=== PATIENT | female | born 1980 | race Caucasian/White ===

== ENCOUNTER 2016-08-04 22:40 | Emergency (ER) | payer OTHER ==
[~2016-08-04] VITALS: Ht 157.5 cm; Wt 104.5 kg
[2016-08-04 22:46] VITALS: BP 137/85; PULSE 77; RESP 16; O2SAT 98
--- NOTE | 2016-08-05 00:21 | ED.REPORT ---
HPI-General Illness Date of Service August 05, 2016 ED Provider: Aayush Lyn MD Pt is a 35 y/o female w/ a hx of anxiety presenting to the ED via airlift EMS c/ o intermittent twinge-like substernal CP onset about 3 days ago. Her symptoms are not exacerbated or relieved by anything. These episodes of chest pain seem to bring on her anxiety symptoms and she states she has been seen for chest pain in the setting of anxiety previously. Her anxiety was previously managed by medication but she has not used any medications since her . She denies cough, fever, SOB. Pt denies any periods of immobilization, history of PE or DVT. Nursing Notes Stated Complaint: CHEST PAIN Chief Complaint: Chest Pain Nursing Notes Reviewed: Yes Allergies: Coded Allergies: NSAIDS (Non-Steroidal Anti-Inflamma (Verified Allergy, Intermediate, kidney problems, 06/04/15) acetaminophen (Verified Allergy, Intermediate, advised not to take it, ) Scheduled PRN Lorazepam (Ativan) 0.5 Mg Tablet 0.5 MG PO TID PRN PRN For Anxiety General Time Seen by MD: 23:13 Chief Complaint Chest pain Hx Obtained From: Patient, EMS Arrived By: Ambulance Sudden in Onset?: No Onset Occurred: 3 days ago Symptom Duration: Since onset Location: : Chest Quality: Painful Severity: Current: Moderate Severity: Maximum: Moderate Past Medical History Past Medical History Calcium oxalate kidney stones HCV Anxiety PTSD PCOS Past Surgical History Liver biopsy Family History noncontributory Smoking History Former Smoker, Light Tobacco Smoker Social History Alcohol Use: Denies alcohol use Drug Use: Denies drug use Other Social History: Good social support, , Local resident Ambulatory Status Independent Review of Systems Full Review of Systems Constitutional: Denies: Chills, Fever Respiratory: Denies: Non-productive cough, Pleuritic pain, Shortness of breath Cardiovascular: Reports: Chest pain Psychiatric: Reports: Anxiety Complete sys rev & neg: except as marked. Physical Exam Vital Signs Vital Signs Date Time Temp Pulse Resp B/P Pulse Ox O2 Delivery O2 Flow Rate FiO2 08/05/16 01:33 36.9 68 16 138/95 97 Room Air 08/04/16 22:46 36.9 77 16 137/85 98 Room Air Initial VS: Reviewed, Vital signs normal Head / Eyes: Atraumatic, Normocephalic, PERRL ENT: Mucous membranes moist, Conjunctiva normal, No scleral icterus Neck: Supple, Full range of motion Respiratory: Breath sounds normal, Clear to auscultation, No respiratory distress Cardiovascular: Regular rate & rhythm, Heart sounds normal, Intact distal pulses Abdomen / GI: Soft, Non-tender Extremities: Vascular intact, Neuro intact, No swelling, No tenderness Skin: Warm, Dry, No cyanosis Neurologic: Alert, Oriented, Nonfocal General/Constitutional: Awake, Alert, No acute distress, Well appearing, Cooperative, Not toxic appearing Behavior: Positive: Anxious Psychiatric: Mood NL Abnormal Mood/Affect: Positive: Anxious (very) Interpretation & Diagnostics Lab Results Interpretation Test 08/04/16 23:40 Hold Urine Received (Received) ECG Interpretation Time: 00:24 Interpreted by: ED physician Normal ECG Interpretation: Normal ECG w/ rate of... (70), Normal rate, Normal sinus rhythm, No acute ischemic changes, Normal QRS, Normal axis, Normal intervals, Adequate tracing X-Ray Chest Interpretation View: Portable, AP & lat Interpretation / Wet Read by: Wet read ED physician NL X-Ray Chest Findings: No infiltrate, No acute disease Re-Eval/Medical Decision Med Decision/Clinical Course Pt is a 35 y/o female w/ a hx of anxiety presenting to the ED via airlift EMS c/ o intermittent twinge-like substernal CP onset about 3 days ago. Her symptoms are not exacerbated or relieved by anything. These episodes of chest pain seem to bring on her anxiety symptoms and she states she has been seen for chest pain in the setting of anxiety previously. Her anxiety was previously managed by medication but she has not used any medications since her . She denies cough, fever, SOB. Pt denies any periods of immobilization, history of PE or DVT. Urine preg: negative CXR: Obtained, reviewed and interpreted by myself shows no evidence of infiltrates, effusions or pneumothorax. Cardiac and mediastinal silhouette normal. No bony or soft tissue abnormalities. EKG was obtained and interpreted by myself as documented above. Patient reports a high level of anxiety. At this time, I see no evidence of pneumonia, pneumothorax, acute coronary syndrome or other immediately concerning /life-threatening cause of the patient's chest discomfort. She states she feels reassured and would like to go home. I feel that this is appropriate. Discussed management options for her anxiety as well as return precautions. Prior to discharge follow-up and return precautions were reviewed in detail with the patient who verbalized understanding and agreement with the plan. The patient was discharged in stable condition. Time of Eval: 00:49 Re-Evaluation/Progress Note: Pt rechecked. Informed pt of plan for treatment. Pt understands and agrees with plan for treatment. F/U instructions and RTER warnings given. All questions addressed. Counseled Regarding: Diagnosis, Lab results, Need for follow-up, When/why to return to ED Discharge & Departure Primary Impression: Chest pain Chest pain type: other chest pain Qualified Code: R07.89 - Other chest pain Additional Impression: Anxiety Disposition: Home Discharge Condition All VS Reviewed: Yes Condition: Stable Patient Instructions: Chest Pain (ED), Generalized Anxiety Disorder (GEN) Additional Instructions: Thank you for seeking care at the emergency room. It is difficult for us to make definitive diagnoses in the ED but we believe that you are experiencing chest pain which is likely caused by anxiety. Our primary goal today in the ED was to evaluate you for any life-threatening conditions. Your evaluation was reassuring. You will be discharged with a prescription for Ativan. Take this as directed for anxiety. This medication is a benzodiazepine and will likely cause drowsiness. Do not drink alcohol, take other benzodiazepine medication, opiate pain medication, or sedating medications while taking Ativan. Do not drive after taking Ativan. Keep in mind Benzodiazepines often cause dependency. Only take it when needed. You should follow-up with your primary doctor in the next week. Consider discussing anxiety medications which may include anti-depressants with your doctor. You should return to the ED immediately if you develop fevers, vomiting, shortness of breath, worsening chest pain, lightheadedness, passing out or any other concerning signs or symptoms. Thank you for letting us partake in your care today. Referrals: [facility] (PCP) Scribe Attestation Portions of this note were transcribed by Aquilino Licona. I, Dr. Lyn personally performed the history, physical exam and medical decision-making; I reviewed and confirmed the accuracy of the information in the transcribed note. Signed by Lorenzo Toth, 08/05/ - 0030 Aayush Lyn MD August 05, 2016 00:21 AQUILINO LICONA August 05, 2016 00:24
[2016-08-05] MEDS ORDERED: LORA-302 PO (00:50)
[2016-08-05] MEDS ORDERED: LORazepam 1 mg Tablet PO ONE (00:50)
[2016-08-05 01:33] VITALS: BP 138/95; PULSE 68; RESP 16; O2SAT 97
--- NOTE | 2016-08-05 09:23 | DRSVH ---
PROCEDURE: X-RAY CHEST, TWO VIEWS ([id number]) INDICATIONS: CHEST PAIN TECHNIQUE: 2 views of the chest were acquired. COMPARISON: None. FINDINGS: Surgical changes and devices: None. Lungs and pleura: No pleural effusions or pneumothorax. Lungs are clear. Mediastinum: Mediastinal contours are normal. Heart size is normal. Bones and chest wall: No suspicious bony abnormalities. Soft tissues appear unremarkable. IMPRESSION: No acute cardiopulmonary disease. Dictated by: Vito Dc [facility] Interpreted: Nguyen Gimenez MD on 08/05/2016 at 8:46 Approved by: Nguyen Gimenez MD, PhD on 08/05/2016 at 9:21
== END 2016-08-05 01:34 | disposition home or self-care (01) ==
LOC: SED 22:40
DX: R07.89 Other chest pain (principal); F41.9 Anxiety disorder, unspecified; F43.10 Post-traumatic stress disorder, unspecified; Z87.891 Personal history of nicotine dependence; Z88.8 Allergy status to other drugs, medicaments and biological substances

== ENCOUNTER 2016-11-06 23:55 | Emergency (ER) | payer OTHER ==
[~2016-11-06] VITALS: Ht 157.5 cm; Wt 107.3 kg
[~2016-11-06 23:55] MED LIST: LORA-302 PO
[2016-11-07 00:14] VITALS: BP 123/60; PULSE 89; RESP 20; O2SAT 100
--- NOTE | 2016-11-07 01:50 | ED.REPORT ---
HPI-Neurologic Deficit Date of Service Nov 07, 2016 ED Provider: Dr. Mcrae The pt is a 36 y/o female with a hx of PCOS, anxiety, and PTSD who presents to the ED complaining of right cheek numbness in the zygomatic region, onset two weeks ago. She also experiences intermittent numbness around the lips. She has consulted her PCP about this and has an MRI scheduled for next week. She came in today because her sx lasted significantly longer today. She also reports a few episodes of right ear pain. She denies facial droop, pain in the cheek and any other sx at this time. Nursing Notes Stated Complaint: RIGHT SIDE FACIAL NUMBNESS Chief Complaint: Neuro Symptoms/ Deficits Nursing Notes Reviewed: Yes Allergies: Coded Allergies: NSAIDS (Non-Steroidal Anti-Inflamma (Verified Allergy, Intermediate, kidney problems, 11/07/16) acetaminophen (Verified Allergy, Intermediate, advised not to take it, ) Scheduled PRN Lorazepam (Ativan) 0.5 Mg Tablet 0.5 MG PO TID PRN PRN For Anxiety General Time Seen by Provider: 01:55 Chief Complaint Other (right cheek numbness) Hx Obtained From: Patient Arrived By: Walk-in Sudden in Onset?: Yes Onset Occurred: More than a week ago... (2 weeks) Symptom Duration: Since onset Severity: Current: No pain currently Severity: Maximum: No pain Recent Healthcare: Recent doctor visit Past Medical History Past Medical History Calcium oxalate kidney stones HCV Anxiety PTSD PCOS Past Surgical History Liver biopsy Family History noncontributory Smoking History Former Smoker, Light Tobacco Smoker Social History Alcohol Use: Denies alcohol use Drug Use: Denies drug use Other Social History: Good social support, , Local resident Ambulatory Status Independent Review of Systems Denies: facial droop Denies: pain in the right cheek Neurologic: Reports: Numbness (right cheek and intermittently around the lips) Complete sys rev & neg: except as marked. Ears / Nose / Throat: Reports: Earache right (a few episodes) Physical Exam Initial Vital Signs Vital Signs (First) Date Time Temp Pulse Resp B/P Pulse Ox O2 Delivery O2 Flow Rate FiO2 11/07/16 00:14 37.1 89 20 123/60 100 Room Air Initial VS: Reviewed, Vital signs normal Neck: Supple, Non-tender, Full range of motion Extremities: Vascular intact, Neuro intact, No swelling, No tenderness Skin: Warm, Dry, No cyanosis General/Constitutional: Awake, Alert, No acute distress, Well appearing, Cooperative Head / Eyes: Atraumatic, Normocephalic, PERRL Temporal Artery: Negative: Temporal artery swollen R, Temporal artery tender R Respiratory / Chest: Atraumatic, Breath sounds NL, Breath sounds = bilat, No respiratory distress, No rales, No rhonchi, No wheezing Cardiovascular: Heart rate NL, Regular rhythm, Heart sounds NL, No gallop, No murmurs Neurologic: Oriented X3, Speech NL, No motor deficits, No sensory deficits ENT: Atraumatic, Mastoid area NL Right Ear / Mastoid: Positive: Tympanic membrane red, Negative: Mastoid area tender Right TM dull, thickened and retracted. Left TM normal Interpretation & Diagnostics CT Head Interpretation No CT evidence of hemorrhage, mass, or acute infarct. Signed by Dr. Edward Umaña 11/07/16 02:42 Study: Head CT w contrast Interpretation / Wet Read by: Interpret - Radiologist Re-Eval/Medical Decision Med Decision/Clinical Course 36-year-old female with intermittent numbness of the right cheek and a small area just anterior to the ear. This likely represents a peripheral nerve pathology, rather than a central etiology. Head CT scan with extension down through the mastoid area is normal. She has an MRI scheduled as an outpatient and will keep that appointment. She also has eustachian tube dysfunction and retraction of the right TM. This may represent some sort of a referred pain from that pathology. Re-Evaluation/Progress #1: Time of Eval: 02:01 Re-Evaluation/Progress Note: Rechecked pt. Discussed the plan to do a CT. The pt understands. All questions answered. Re-Evaluation/Progress #2: Time of Eval: 03:12 Re-Evaluation/Progress Note: Rechecked pt. Discussed imaging results, diagnosis and plan to discharge. Pt understands and agrees with the plan. F/U instruction and RTER warning given. All questions addressed. Counseled Regarding: Diagnosis, Need for follow-up, When/why to return to ED Discharge & Departure Impression: Primary Impression: Right facial numbness Disposition: Home Discharge Condition All VS Reviewed: Yes Condition: Stable Additional Instructions: The cause of the small area facial numbness is not certain but it seems to be related to a peripheral nerve. I doubt this is a stroke syndrome, and it is not clearly Aleman's palsy. Your CT scan of your brain and ear area is normal. Your right eardrum is retracted due to eustachian tube dysfunction. Afrin nasal spray 1 spray each nostril 3 times a day for 3 days. Follow up as planned with your regular doctor and get the MRI as planned. Referrals: [facility] Scribe Attestation Portions of this note were transcribed by Sonia Coley. I,, personally performed the history,physical exam and medical decision-making;I reviewed and confirmed the accuracy of the information in the transcribed note. Signed by Sonia Coley, Lorenzo. 11/07/16 Rojas Mcrae MD Nov 07, 2016 01:50 Sonia Coley Nov 07, 2016 02:07
[2016-11-07 03:46] VITALS: BP 132/74; PULSE 88; RESP 20; O2SAT 100
--- NOTE | 2016-11-07 07:09 | DRSVH ---
PROCEDURE: CT BRAIN WITHOUT CONTRAST ([id number]) INDICATIONS: right facial numbness, otitis TECHNIQUE: Noncontrast 4.5 mm thick angled axial sections acquired from the foramen magnum to the vertex, with c oronal reformats. COMPARISON: None. FINDINGS: Image quality: Excellent. CSF spaces: Basal cisterns are patent. No extra-axial fluid collections. Ventricles are normal in size and shape. Brain: No midline shift. No intracranial masses or hemorrhage. Byrnes-white matter interface is norm al. Skull and face: Calvarium and visualized facial bones are intact, without suspicious lesions. Sinuses: Visualized sinuses and mastoids are clear. IMPRESSION: Negative head CT. No significant discrepancy with the mold shifter radiology preliminary report. Dictated by: Dick Guardado M.D. on 11/07/2016 at 7:07 Approved by: Dick Guardado M.D. on 11/07/2016 at 7:08
== END 2016-11-07 03:44 | disposition home or self-care (01) ==
LOC: SED 23:55
DX: R20.0 Anesthesia of skin (principal); H92.01 Otalgia, right ear; F41.9 Anxiety disorder, unspecified; Z87.891 Personal history of nicotine dependence; Z88.6 Allergy status to analgesic agent; Z88.8 Allergy status to other drugs, medicaments and biological substances